=== PATIENT | female | born 2000 | race Caucasian/White ===

== ENCOUNTER 2019-06-30 11:40 | Emergency (ER) | payer SELFPAY ==
--- NOTE | 2019-06-30 11:51 | ER Document Report ---
ED General - General Stated Complaint: HAND NUMBNESS-RIGHT Notes: With right hand numbness and inability use the right wrist. She woke up like this about 28 hours ago yesterday morning. She went to sleep normally did not use any drugs or alcohol. She often wakes up with numb hands in the middle of the night. She has no leg symptoms or face symptoms no history of migraines or strokes no history of blood clots or septal defects. - Related Data Allergies/Adverse Reactions: No Known Allergies Allergy (Unverified 06/30/19 11:52) Past Medical History - Social History Smoking Status: Never Smoker Family History: None Review of Systems - Review of Systems Notes: REVIEW OF SYSTEMS GEN: Denies fever, chills, weight loss ENT: Denies sore throat, nasal discharge, ear pain EYES: Denies blurry vision, eye pain, discharge CV: Denies chest pain, palpitations, edema RESP: Denies cough, shortness of breath, wheezing GI: Denies abdominal pain, nausea, vomiting, diarrhea MSK: Chronic back pain from cheerleading injuries SKIN: Denies rash, skin lesions LYMPH: Denies swollen glands/lymph nodes NEURO: Uttered foot paresthesias, brand-new right wrist and hand weakness and numbness PSYCH: Denies depression, suicidal or homicidal ideation PHYSICAL EXAMINATION General: No acute distress, well-nourished Head: Atraumatic, normocephalic ENT: Mouth normal, oropharynx moist, no exudates or tonsillar enlargement Eyes: Conjunctiva normal, pupils equal, lids normal Neck: No JVD, supple, no guarding CVS: Normal rate, regular rhythm, no murmurs Resp: No resp distress, equal and normal breath sounds bilaterally GI: Nondistended, soft, no tenderness to palpation, no rebound or guarding Ext: No deformities, no edema, normal range of motion in upper and lower ext Back: No CVA or midline TTP Skin: No rash, warm Lymphatic: No lymphadeopathy noted Neuro: Awake, alert. Face symmetric. GCS 15. Nerves II through XII are intact. Strength and sensation are normal in all 4 extremities except the right upper extremity, with displaced areflexia of the brachial radialis, severe weakness in thumb extension and wrist extension with mild paresthesias in the radial nerve territory. Toyed biceps preserved. Physical Exam - Vital signs Vitals: Temp Pulse BP Pulse Ox 99.3 F 116 H 129/84 H 100 06/30/19 11:52 06/30/19 11:52 06/30/19 11:52 06/30/19 11:52 Course - Re-evaluation Re-evalutation: 07/05/19 13:38 Nerve palsy. No other neuro deficits. Had a long discussion with patient and family. She is also been having intermittent back pain for years scattered paresthesias in her feet but no bowel bladder or saddle anesthesia. I discussed her case with Dr. Campa from neurology at [facility] who recommends outpatient neuro follow-up. We splinted her in a cock-up splint and she was discharged stable condition. I have discussed with the patient there likely diagnosis, aftercare plan, follow-up plans and my usual and customary return precautions. They verbalized understanding of this. - Vital Signs Vital signs: Temp Pulse Resp BP Pulse Ox 98.2 F 92 18 114/70 100 06/30/19 13:00 06/30/19 13:00 06/30/19 13:00 06/30/19 13:00 06/30/19 13:00 - Laboratory Laboratory results interpreted by me: 06/30/19 12:28 Urine Urobilinogen 4.0 H Procedures - Immobilization Right Lower Arm Pre-Proc Neuro Vasc Exam: Normal Immobilizer type: Cock-up Performed by: Provider assisted Post-Proc Neuro Vasc Exam: Normal Alignment checked and good: Yes Discharge - Discharge Clinical Impression: Acute radial nerve palsy Condition: Good Disposition: HOME, SELF-CARE Instructions: Temporary Splint ([facility]) Additional Instructions: As we discussed, you have an injury to the nerve on the right hand which prevents your wrist from going up in your thumb from working. This is usually been able to be overcome/improved with physical therapy but this needs to be started soon. Please follow-up with a primary care doctor in your hometown of [place] and ask for a referral to physical therapy. He is wear the splint all day every day. Okay with neurology at [facility], please look up and call them for an appointment within a week. Forms: Return to Work
[2019-06-30 12:41] LABS: AMORPHOUS SEDIMENT,URINE TRACE /HPF; APPEARANCE,URINE SLIGHTLY-CLOUDY; BILIRUBIN,URINE NEGATIVE (NEGATIVE); CALCIUM OXALATE CRYSTALS,URINE MANY /HPF; COLOR,URINE YELLOW; GLUCOSE, URINE NEGATIVE (NEGATIVE); KETONES,URINE NEGATIVE (NEGATIVE); LEUKOCYTE ESTERASE,URINE NEGATIVE (NEGATIVE); NITRITE,URINE NEGATIVE (NEGATIVE); PROTEIN,URINE NEGATIVE (NEGATIVE); URINE SPECIFIC GRAVITY 1.021
[2019-06-30 13:02] VITALS: BP 114/70
== END 2019-06-30 13:09 | disposition home or self-care (01) ==
LOC: ER 11:40
DX: G56.30 Lesion of radial nerve, unspecified upper limb (principal); R20.0 Anesthesia of skin; M54.9 Dorsalgia, unspecified; R20.2 Paresthesia of skin
CPT/HCPCS: 81001; 99283

== ENCOUNTER 2019-07-01 21:49 | Emergency (ER) | payer SELFPAY ==
[2019-07-01 22:14] VITALS: BP 123/65
[2019-07-01] MEDS ORDERED: PREDNISONE 20 MG TABLET PO ONE (22:36)
[2019-07-01] MEDS ORDERED: NAPROXEN 250 MG TABLET PO ONE (22:37)
--- NOTE | 2019-07-01 22:42 | ER Document Report ---
ED Extremity Problem, Upper - General Chief Complaint: Arm Pain Stated Complaint: RIGHT ARE PAIN Time Seen by Provider: 07/01/19 22:36 Notes: CHIEF COMPLAINT: Continuing right wrist pain HPI: 19-year-old female who is right-hand dominant presenting for continued right wrist pain and numbness and tingling in the thumb and index finger. Patient states that she woke up from sleep with numbness and tingling in the right thumb and index finger and inability to extend the right hand at the wrist. Patient had gone to bed feeling fine. Patient does not know if she slept on it wrong. States she was seen here yesterday diagnosed with a radial nerve palsy and placed in a splint. Has had more swelling and pain in the splint. Has not yet followed up with neurology. Is taking no medications for her symptoms or discomfort. Patient denies neck injury. States that she always has some level of neck pain but it is not worse than normal ROS: See HPI - all other systems were reviewed and are otherwise negative Constitutional: no fever Integumentary: no rash Allergy: no hives Musculoskeletal: + extremity pain or swelling Neurological: + numbness/tingling, + weakness MEDICATIONS: I agree with the patient medications as charted by the RN. ALLERGIES: I agree with the allergies as charted by the RN. PAST MEDICAL HISTORY/PAST SURGICAL HISTORY: Reviewed and agree as charted by RN. SOCIAL HISTORY: Reviewed and agree as charted by RN. FAMILY HISTORY: No significant familial comorbid conditions directly related to patient complaint EXAM: Reviewed vital signs as charted by RN. CONSTITUTIONAL: Alert and oriented and responds appropriately to questions. Well-appearing; well-nourished HEAD: Normocephalic; atraumatic EYES: Conjunctivae clear, sclerae non-icteric ENT: normal nose; no rhinorrhea; moist mucous membranes NECK: Supple without meningismus; non-tender; no cervical lymphadenopathy, no masses CARD: Capillary refill less than 3 seconds; symmetric distal pulses RESP: Normal chest excursion without splinting or tachypnea ABD/GI: non-distended. BACK: The back appears normal and is non-tender to palpation EXT: Patient with inability to extend the right hand at the wrist but is able to flex the right hand at the wrist. Patient with limited separation of the fingers of the right hand and limited abduction of the right thumb. Patient with decreased sensation to touch on both the volar and dorsal aspects of the r ight thumb and index finger but has intact sensation both dorsal and volar on the third fourth and fifth fingers of the right hand as well as on the dorsum and volar aspects of the hand laterally in the ulnar distribution. Patient with some mild decreased sensation to touch on the radial side of the right forearm to the level of the elbow and slightly on the distal biceps region. SKIN: Normal color for age and race; warm; dry; good turgor; no acute lesions noted NEURO: Decreased movement of the right hand and wrist with decreased sensation in the thumb and index finger PSYCH: The patient's mood and manner are appropriate. Grooming and personal hygiene are appropriate. MDM: 19-year-old female with a likely radial nerve palsy as diagnosed yesterday. Will place patient in a Velcro cock-up splint for more comfort. Will place her on a course of steroids and anti-inflammatories. She will continue with neurology follow-up. No indication for emergent MRI tonight. Her numbness and tingling is in the radial nerve distribution. She is aware of the importance of follow-up to prevent disability - Related Data Allergies/Adverse Reactions: No Known Allergies Allergy (Unverified 06/30/19 11:52) Home Medications: BCP, tyenol/ibuprofen prn Past Medical History - Social History Smoking Status: Current Every Day Smoker Family History: Reviewed & Not Pertinent Patient has homicidal ideation: No Physical Exam - Vital signs Vitals: Temp Pulse Resp BP Pulse Ox 98.6 F 63 12 123/65 100 07/01/19 21:53 07/01/19 21:53 07/01/19 21:53 07/01/19 21:53 07/01/19 21:53 Course - Vital Signs Vital signs: Temp Pulse Resp BP Pulse Ox 98.6 F 63 12 123/65 100 07/01/19 22:20 07/01/19 21:53 07/01/19 21:53 07/01/19 21:53 07/01/19 21:53 Discharge - Discharge Clinical Impression: Acute radial nerve palsy of right upper extremity Condition: Stable Disposition: HOME, SELF-CARE Additional Instructions: Continue with follow-up with neurology for further evaluation and management as well as possible referral to physical therapy as discussed call for appointment. Medications as prescribed Prescriptions: Prednisone [Deltasone 20 mg Tablet] 2 tab PO DAILY 5 Days #10 tablet Diclofenac Sodium [Voltaren 50 Mg Tablet.Dr] 50 mg PO BID #20 tablet.dr Forms: Return to Work
== END 2019-07-01 22:55 | disposition home or self-care (01) ==
LOC: ER 21:49
DX: G56.31 Lesion of radial nerve, right upper limb (principal); M79.601 Pain in right arm; M25.531 Pain in right wrist; R53.1 Weakness; R20.0 Anesthesia of skin; M54.2 Cervicalgia; M79.89 Other specified soft tissue disorders; F17.200 Nicotine dependence, unspecified, uncomplicated
CPT/HCPCS: 99283; J7512